=== PATIENT | male | born 2000 | race Caucasian/White ===

== ENCOUNTER 2020-08-08 21:46 | Emergency (ER) | payer BC, OTHER ==
[~2020-08-08] VITALS: Ht 177.8 cm; Wt 77.1 kg
[2020-08-08] MEDS ORDERED: LACTATED RINGERS 1,000 ML IV ONE (22:11)
[2020-08-08] MEDS ORDERED: PANTOPRAZOLE 40 MG (PROTONIX) VIAL IV ONE (22:15)
[2020-08-08 22:22] LABS: BILIRUBIN,URINE 1+ (NEGATIVE); CLARITY,URINE CLEAR; COLOR,URINE DARK YELLOW; GLUCOSE, URINE (UA) NEGATIVE (NEGATIVE); KETONES,URINE TRACE (NEGATIVE); LEUKOCYTE ESTERASE ,URINE NEGATIVE (NEGATIVE); NITRITE,URINE NEGATIVE (NEGATIVE); PROTEIN,URINE NEGATIVE (NEGATIVE)
--- NOTE | 2020-08-08 22:35 | ED GI ---
General Stated Complaint: ABD PAIN;BLOODY STOOL Source of Information: Patient History of Present Illness Date Seen by Provider: Aug 08, 2020 Time Seen by Provider: 22:03 Initial Comments PT ARRIVES VIA POV FROM HOME C/O GENERALIZED ABDOMINAL PAIN AND DIFFUSE LOWER BACK PAIN SINCE FRIDAY--BUT NOT NOW C/O NAUSEA AND VOMITING--STATES HE VOMITED 6 TIMES YESTERDAY, NO VOMITING TODAY. NO NAUSEA AT THIS TIME.NO HEMATEMESIS OR COFFEE-GROUND EMESIS C/O BLOODY DIARRHEA SINCE FRIDAY--"DARK, RED, CLEAR" STOOLS, AND STATES HE HAS HAD AT LEAST "50 STOOLS TODAY--AT LEAST EVERY 10 MINUTES" STATES HE HAD FEVER UP TO 103 ON FRIDAY, TODAY IT WAS 99.6 HAS BEEN TAKING MOTRIN 800 MG EVERY 6 HOURS FOR PAIN AND FEVER ATE DINNER FRIDAY NIGHT AT [employer]--BURGERS FROM PTO NO ONE ELSE IN HOME IS ILL STATES HE DID NOT EAT ANYTHING ON FRIDAY, HAD A COUPLE OF CRACKERS ON FRIDAY, AND FOR LUNCH TODAY HAD "TONNY" STATES HE HAS BEEN DRINKING LIQUIDS/WATER, BUT IS URINATING ONLY A SMALL AMOUNT--"JUST TRICKLES" --LAST VOID 20 MINUTES PRIOR TO ARRIVAL. STATES HE HAS HAD 5 BOTTLES OF WATER TODAY, NOTHING ELSE TO DRINK PT AND BROTHER RUN A [employer] STATES HE HAD THE SAME THING ABOUT 7 MONTHS AGO--PT STATES "FOOD POISONING" BUT NO TESTS WERE DONE, AND DID NOT SEEK CARE--SAW A NEIGHBOR WHO REPORTEDLY IS IN HEALTH CARE. WAS BETTER IN 2 DAYS PT HAS NOT BEEN ON ANTIBIOTICS X 3 MONTHS--WAS FOR A SINUS INFECTION AT THAT TIME PT DRINKS AT LEAST HALF OF FIFTH OF WHISKEY A DAY, BUT CLAIMS "NONE IN 3 WEEKS" NO MAJOR MEDICAL PROBLEMS. NO ABDOMINAL SURGERIES PCP: [facility] Allergies and Home Medications Allergies Coded Allergies: No Known Drug Allergies (Unverified , 08/08/20) Home Medications Ciprofloxacin HCl 500 Mg Tablet, 500 MG PO BID Prescribed by: MALICK CLARK on 08/09/20206 Dicyclomine HCl 20 Mg Tablet, 20 MG PO Q6H Prescribed by: MALICK CLARK on 08/09/20206 Hyoscyamine Sulfate 0.125 Mg Tab.subl, 0.25 MG SL Q4H Prescribed by: MALICK CLARK on 08/09/20206 L. Acidophilus/Pectin, Green Level 1 Each Capsule, 2 EACH PO QID Prescribed by: MALICK CLARK on 08/09/20206 Metronidazole 500 Mg Tablet, 500 MG PO QID Prescribed by: MALICK CLARK on 08/09/20206 Patient Home Medication List Home Medication List Reviewed: Yes Review of Systems Review of Systems Constitutional: see HPI, fever EENTM: No Symptoms Reported Respiratory: No Symptoms Reported Cardiovascular: No Symptoms Reported Gastrointestinal: See HPI, Abdominal Pain, Diarrhea, Nausea, Poor Appetite, Poor Fluid Intake, Rectal Bleeding, Vomiting Genitourinary: No Symptoms Reported Musculoskeletal: see HPI, back pain Skin: no symptoms reported Psychiatric/Neurological: No Symptoms Reported Endocrine: No Symptoms Reported Hematologic/Lymphatic: No Symptoms Reported Past Xslxdtw-Zgtkeo-Asmjlb Hx Past Med/Social Hx: Reviewed and Corrections made Patient Social History Alcohol Use: Regular Use (HALF OF A FIFTH OF WHISKEY / DAY) Alcohol Beverage of Choice: Whiskey Recreational Drug Use: No Smoking Status: Current Someday Smoker Type Used: Cigarettes Recent Foreign Travel: No Contact w/Someone Who Travel: No Past Medical History Surgeries: Yes Tonsillectomy Respiratory: No Cardiac: No Neurological: No Genitourinary: No Gastrointestinal: No Musculoskeletal: No Endocrine: No HEENT: No Cancer: No Psychosocial: No Integumentary: No Blood Disorders: No Physical Exam Vital Signs Vital Signs - First Documented 08/08/20 21:56 Temp 37.6 Pulse 117 Resp 20 B/P (MAP) 160/97 (118) Pulse Ox 98 Capillary Refill : Height/Weight/BMI Height: '" Weight: lbs. oz. kg; BMI Method: General Appearance: WD/WN, no apparent distress, other (WALKS UPRIGHT AND MOVES WITHOUT DIFFICULTY. DOES NOT APPEAR ILL OR TO BE IN ANY DISCOMFORT OR DISTRESS. 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, no motor/sensory deficits, alert, normal mood/affect, oriented x 3 Skin: normal color, warm/dry; No rash; tattoos/piercings (MULTIPLE TATTOOS) Focused Exam Lactate Level 08/08/20 22:30: Lactic Acid Level 0.76 Lactic Acid Level Laboratory Tests Test 08/08/20 22:30 Lactic Acid Level 0.76 MMOL/L (0.50-2.00) Progress/Results/Core Measures Results/Orders Lab Results Laboratory Tests Test 08/08/20 22:15 08/08/20 22:30 08/08/20 22:45 Range/Units Urine Color DARK YELLOW Urine Clarity CLEAR Urine pH 6.0 5-9 Urine Specific [place] >=1.030 1.016-1.022 Urine Protein NEGATIVE NEGATIVE Urine Glucose (UA) NEGATIVE NEGATIVE Urine Ketones TRACE H NEGATIVE Urine Nitrite NEGATIVE NEGATIVE Urine Bilirubin 1+ H NEGATIVE Urine Urobilinogen 0.2 < = 1.0 MG/DL Urine Leukocyte Esterase NEGATIVE NEGATIVE Urine RBC (Auto) 2+ H NEGATIVE Urine RBC 2-5 H /HPF Urine WBC 2-5 /HPF Urine Crystals PRESENT H /LPF Urine Amorphous Sediment FEW TONIE URATES H /LPF Urine Bacteria TRACE /HPF Urine Casts NONE /LPF Urine Mucus LARGE H /LPF Urine Culture Indicated NO Urine Opiates Screen NEGATIVE NEGATIVE Urine Oxycodone Screen NEGATIVE NEGATIVE Urine Methadone Screen NEGATIVE NEGATIVE Urine Propoxyphene Screen NEGATIVE NEGATIVE Urine Barbiturates Screen NEGATIVE NEGATIVE Ur Tricyclic Antidepressants Screen NEGATIVE NEGATIVE Urine Phencyclidine Screen NEGATIVE NEGATIVE Urine Amphetamines Screen NEGATIVE NEGATIVE Urine Methamphetamines Screen NEGATIVE NEGATIVE Urine Benzodiazepines Screen NEGATIVE NEGATIVE Urine Cocaine Screen NEGATIVE NEGATIVE Urine Cannabinoids Screen NEGATIVE NEGATIVE White Blood Count 7.6 4.3-11.0 10^3/uL Red Blood Count 5.10 4.30-5.52 10^6/uL Hemoglobin 15.3 13.3-17.7 g/dL Hematocrit 44 40-54 % Mean Corpuscular Volume 86 80-99 fL Mean Corpuscular Hemoglobin 30 25-34 pg Mean Corpuscular Hemoglobin Concent 35 32-36 g/dL Red Cell Distribution Width 12.7 10.0-14.5 % Platelet Count 277 130-400 10^3/uL Mean Platelet Volume 10.6 9.0-12.2 fL Immature Granulocyte % (Auto) 1 % Neutrophils (%) (Auto) 70 42-75 % Lymphocytes (%) (Auto) 19 12-44 % Monocytes (%) (Auto) 10 0-12 % Eosinophils (%) (Auto) 0 0-10 % Basophils (%) (Auto) 1 0-10 % Neutrophils # (Auto) 5.3 1.8-7.8 10^3/uL Lymphocytes # (Auto) 1.4 1.0-4.0 10^3/uL Monocytes # (Auto) 0.7 0.0-1.0 10^3/uL Eosinophils # (Auto) 0.0 0.0-0.3 10^3/uL Basophils # (Auto) 0.1 0.0-0.1 10^3/uL Immature Granulocyte # (Auto) 0.1 0.0-0.1 10^3/uL Prothrombin Time 13.9 12.2-14.7 SEC INR Comment 1.0 0.8-1.4 Activated Partial Thromboplast Time 32 24-35 SEC Sodium Level 135 135-145 MMOL/L Potassium Level 3.5 L 3.6-5.0 MMOL/L Chloride Level 98 98-107 MMOL/L Carbon Dioxide Level 22 21-32 MMOL/L Anion Gap 15 H 5-14 MMOL/L Blood Urea Nitrogen 10 7-18 MG/DL Creatinine 1.01 0.60-1.30 MG/DL Estimat Glomerular Filtration Rate > 60 BUN/Creatinine Ratio 10 Glucose Level 98 70-105 MG/DL Lactic Acid Level 0.76 0.50-2.00 MMOL/L Calcium Level 9.2 8.5-10.1 MG/DL Corrected Calcium 9.0 8.5-10.1 MG/DL Magnesium Level 1.5 L 1.6-2.4 MG/DL Total Bilirubin 0.8 0.1-1.0 MG/DL Aspartate Amino Transf (AST/SGOT) 25 5-34 U/L Alanine Aminotransferase (ALT/SGPT) 43 0-55 U/L Alkaline Phosphatase 97 40-136 U/L Total Protein 8.0 6.4-8.2 GM/DL Albumin 4.3 3.2-4.5 GM/DL Amylase Level 32 25-125 U/L Lipase 15 8-78 U/L Procalcitonin 0.14 H <0.10 NG/ML Salicylates Level < 5.0 L 5.0-20.0 MG/DL Acetaminophen Level < 10 L 10-30 UG/ML Serum Alcohol 25 H <10 MG/DL Coronavirus 2019 (ZANDRA) Negative Negative My Orders Orders - AMBERMALICK Carvajal Ed Iv/Invasive Line Start (08/08/20 22:11) Monitor-Rhythm Ecg Trace Only (08/08/20 22:11) Acetaminophen (08/08/20 22:11) Alcohol (08/08/20 22:11) Amylase (08/08/20 22:11) Cbc With Automated Diff (08/08/20 22:11) Comprehensive Metabolic Panel (08/08/20 22:11) Drug Screen Stat (Urine) (08/08/20 22:11) Lipase (08/08/20 22:11) Magnesium (08/08/20 22:11) Protime With Inr (08/08/20 22:11) Partial Thromboplastin Time (08/08/20 22:11) Salicylate (08/08/20 22:11) Ua Culture If Indicated (08/08/20 22:11) Ed Iv/Invasive Line Start (08/08/20 22:11) Lactated Ringers (Lr 1000 Ml Iv Solution (08/08/20 22:11) Pantoprazole Injection (Protonix Injecti (08/08/20 22:15) Coronavirus Sars-Cov-2 So 2018 (08/08/20 22:21) Covid 19 Inhouse Test (08/08/20 22:21) Lactic Acid Analyzer (08/08/20 22:26) Procalcitonin (Pct) (08/08/20 22:26) Blood Culture (08/08/20 22:26) Ct Abdomen/Pelvis W (08/09/20 00:29) Acute Abd Series (08/09/20 00:29) Iohexol Injection (Omnipaque 350 Mg/Ml 1 (08/09/20 01:45) Ns (Ivpb) (Sodium Chloride 0.9% Ivpb Bag (08/09/20 01:45) Ciprofloxacin Tablet (Cipro Tablet) (08/09/20 02:15) Metronidazole Tablet (Flagyl Tablet) (10/7/20 02:15) Medications Given in ED Current Medications Medications Dose Ordered Sig/Sylvia Route Start Time Stop Time Status Last Admin Dose Admin Iohexol 100 ml ONCE ONCE IV 08/09/20 01:45 08/09/20 01:46 DC 08/09/20 01:52 100 ML Lactated Ringer's 1,000 ml @ 0 mls/hr Q0M ONCE IV 08/08/20 22:11 08/08/20 22:14 DC 08/08/20 23:03 1,000 MLS/HR Pantoprazole 40 mg ONCE ONCE IV 08/08/20 22:15 08/08/20 22:16 DC 08/08/20 23:03 40 MG Sodium Chloride 80 ml ONCE ONCE IV 08/09/20 01:45 08/09/20 01:46 DC 08/09/20 01:52 80 ML Vital Signs/I&O 08/08/20 21:56 Temp 37.6 Pulse 117 Resp 20 B/P (MAP) 160/97 (118) Pulse Ox 98 Progress Progress Note : Progress Note PT PLACED IN ISOLATION ROOM. PPE WORN AT ALL TIMES COVID-19 TESTING PERFORMED PT ADVISED OF NEED FOR QUARANTINE NO PAIN ANYWHERE DURING ENTIRE ER STAY NO NAUSEA/VOMITING NO DIARRHEA VOIDED ON ARRIVAL. NO SYMPTOMS OF ANY KIND DURING ENTIRE STAY Diagnostic Imaging Comments ABDOMEN XRAYS--NO ACUTE PROCESS, PENDING RADIOLOGIST REVIEW CT ABDOMEN/PELVIS--DIFFUSE COLITIS, MILD JEJUNAL INTUSSUSCEPTION, WITHOUT EDEMA/ENTERITIS/OBSTRUCTION. FINDINGS LIKELY TRANSIENT INTUSSUSCEPTION AND ARE UNLIKELY OF CLINICAL SIGNIFICANCE. PER [facility] VIA FAX AT [id number] Reviewed: Reviewed by Me Departure Impression Primary Impression: Person under investigation for COVID-19 Additional Impression: Acute colitis Disposition: 01 HOME, SELF-CARE Condition: Improved Departure-Patient Inst. Referrals: NO,LOCAL PHYSICIAN (PCP) Primary Care Physician FALLON CHAVES DO Patient Instructions: Colitis (DC), Preventing the Spread of an Infectious Disease, Coronavirus Disease 2019 (COVID-19) Tests Add. Discharge Instructions: CLEAR LIQUIDS--WATER, BROTH, JELLO, GATORADE BRATS DIET--BANANAS, RICE, APPLESAUCE, TOAST, SALTINES NO ALCOHOL!!!!! FOLLOW UP WITH DR. CHAVES, THIS WEEK FOR FURTHER CARE RETURN TO ER IF SYMPTOMS WORSEN Scripts Hyoscyamine Sulfate (Levsin-Sl) 0.125 Mg Tab.subl 0.25 MG SL Q4H, #10 TAB Prov: MALICK CLARK DO 08/09/20 Metronidazole (Flagyl) 500 Mg Tablet 500 MG PO QID, #40 TAB Prov: MALICK CLARK DO 08/09/20 Dicyclomine HCl (Dicyclomine HCl) 20 Mg Tablet 20 MG PO Q6H for Abdominal Pain, #20 TAB Prov: MALICK CLARK DO 08/09/20 Ciprofloxacin HCl (Ciprofloxacin HCl) 500 Mg Tablet 500 MG PO BID, #20 TAB Prov: MALICK CLARK DO 08/09/20 L. Acidophilus/Pectin, Green Level (Acidophilus Capsule) 1 Each Capsule 2 EACH PO QID, #40 CAP Prov: MALICK CLARK DO 08/09/20 MALICK CLARK DO Aug 08, 2020 22:35
[2020-08-08 22:42] LABS: AMORPHOUS SEDIMENT,UR FEW AMOR URATES /LPF; BACTERIA,URINE TRACE /HPF
[2020-08-08 22:59] LABS: AMPHETAMINE SCREEN, URINE NEGATIVE (NEGATIVE); BARBITURATE SCREEN URINE NEGATIVE (NEGATIVE); BENZODIAZEPINES SCREEN URINE NEGATIVE (NEGATIVE); CANNABINOID SCREEN, URINE NEGATIVE (NEGATIVE); COCAINE SCREEN URINE NEGATIVE (NEGATIVE); METHADONE STAT NEGATIVE (NEGATIVE); METHAMPHETAMINE SCREEN URINE S NEGATIVE (NEGATIVE); OPIATE SCREEN URINE NEGATIVE (NEGATIVE); OXYCODONE STAT NEGATIVE (NEGATIVE); PROPOXYPHENE STAT NEGATIVE (NEGATIVE); TRICYCLIC ANTIDEPRESSANTS SCRE NEGATIVE (NEGATIVE)
[2020-08-08 23:10] LABS: BASOPHILS # (AUTO) 0.1 10^3/uL (0.0-0.1); BASOPHILS % (AUTO) 1 % (0-10); EOSINOPHILS % (AUTO) 0 % (0-10); HEMATOCRIT 44 % (40-54); HEMOGLOBIN 15.3 g/dL (13.3-17.7); LYMPHOCYTES # (AUTO) 1.4 10^3/uL (1.0-4.0); LYMPHOCYTES % (AUTO) 19 % (12-44); MEAN CORPUSCULAR HEMOGLOBIN 30 pg (25-34); MEAN CORPUSCULAR HGB CONC 35 g/dL (32-36); MEAN CORPUSCULAR VOLUME 86 fL (80-99); MEAN PLATELET VOLUME 10.6 fL (9.0-12.2); MONOCYTES # (AUTO) 0.7 10^3/uL (0.0-1.0); MONOCYTES % (AUTO) 10 % (0-12); NEUTROPHILS # (AUTO) 5.3 10^3/uL (1.8-7.8); NEUTROPHILS % (AUTO) 70 % (42-75); PLATELET COUNT 277 10^3/uL (130-400); WHITE BLOOD COUNT 7.6 10^3/uL (4.3-11.0)
[2020-08-08 23:24] LABS: ALBUMIN 4.3 GM/DL (3.2-4.5); CHLORIDE 98 MMOL/L (98-107); POTASSIUM 3.5 MMOL/L (3.6-5.0); PROTHROMBIN TIME PATIENT 13.9 SEC (12.2-14.7); SODIUM 135 MMOL/L (135-145)
[2020-08-08 23:26] LABS: AMYLASE 32 U/L (25-125); CALCIUM 9.2 MG/DL (8.5-10.1)
[2020-08-08 23:27] LABS: GLUCOSE 98 MG/DL (70-105)
[2020-08-08 23:28] LABS: CARBON DIOXIDE 22 MMOL/L (21-32)
[2020-08-08 23:29] LABS: BILIRUBIN,TOTAL 0.8 MG/DL (0.1-1.0)
[2020-08-08 23:30] LABS: ALKALINE PHOSPHATASE 97 U/L (40-136)
[2020-08-08 23:31] LABS: CREATININE SERUM 1.01 MG/DL (0.60-1.30); GFR ESTIMATED > 60
[2020-08-08 23:32] LABS: ACETAMINOPHEN < 10 UG/ML (10-30); BUN/CREATININE RATIO 10
[2020-08-08 23:33] LABS: MAGNESIUM 1.5 MG/DL (1.6-2.4); SALICYLATE < 5.0 MG/DL (5.0-20.0)
[2020-08-08 23:34] LABS: ALANINE AMINOTRANSFERASE 43 U/L (0-55)
[2020-08-08 23:35] LABS: LIPASE 15 U/L (8-78)
[2020-08-09] MEDS ORDERED: NS 100 ML (IVPB) BAG IV ONE (01:45)
[2020-08-09] MEDS ORDERED: IOHEXOL 350 MG/ML 100 ML (OMNIPAQUE 350) VIAL IV ONE (01:45)
[2020-08-09] MEDS ORDERED: DICY20TA10 PO (02:07)
[2020-08-09] MEDS ORDERED: HYOS0.1283 SL (02:07)
[2020-08-09] MEDS ORDERED: METR500T PO (02:07)
[2020-08-09] MEDS ORDERED: CIPR500T4 PO (02:07)
[2020-08-09] MEDS ORDERED: L. A1CAP11 PO (02:07)
[2020-08-09 02:11] VITALS: BP 136/83
--- NOTE | 2020-08-09 02:11 | NUR ---
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 DR CLARK NOTIFIED MEDS NOT GIVEN.
[2020-08-09] MEDS ORDERED: CIPROFLOXACIN 500 MG (CIPRO) TABLET PO SCH (02:15)
[2020-08-09] MEDS ORDERED: metroNIDAZOLE 500 MG (FLAGYL) TAB PO ONE (02:15)
--- NOTE | 2020-08-09 06:56 | Diagnostic Imaging Report ---
INDICATION: Abdominal pain. FINDINGS: Upright chest show the lungs to be clear. Upright supine abdomen shows no evidence of free air under the diaphragm. There are several mildly dilated loops of small bowel with air-fluid levels in the midline. There is a small amount of gas and stool noted in the colon. IMPRESSION: Mild gaseous distention of the bowel with air-fluid levels small bowel. These findings more likely are secondary to enteritis or adynamic ileus as opposed to bowel obstruction. Dictated by: Dictated on workstation # [id number]
--- NOTE | 2020-08-09 07:15 | Diagnostic Imaging Report ---
PROCEDURE: CT abdomen and pelvis with contrast. TECHNIQUE: Multiple contiguous axial images were obtained through the abdomen and pelvis after administration of intravenous contrast. Auto Exposure Controls were utilized during the CT exam to meet ALARA standards for radiation dose reduction. All CT scans use one or more of the following dose optimizing techniques: automated exposure control, MA and/or KvP adjustment based on patient size and exam type or iterative reconstruction. INDICATION: Bloody stools. FINDINGS: Lung bases are clear. There is diffuse thickening of the colonic bowel wall throughout from the cecum to the rectum. The findings do suggest intussusception in the mid jejunum though there is no evidence of significant obstruction of the small bowel. No evidence of pneumatosis of the bowel. The appendix is normal. There is no free air or free fluid. Liver appears normal. Gallbladder and bile ducts are normal. Pancreas is normal. Spleen is normal. The adrenal glands and kidneys are normal. Normal enhancement of the abdominal organs and vessels. No free air or free fluid. There are no blastic or lytic bony changes. IMPRESSION: 1. Diffuse edema of the colonic bowel wall consistent with colitis. 2. Intussusception mid jejunum causing mild obstruction without evidence of pneumatosis or significant bowel wall thickening within the small bowel at this time. These findings are concordant with the preliminary report. Dictated by: Dictated on workstation # [id number]
== END 2020-08-09 02:11 | disposition home or self-care (01) ==
LOC: ER 21:48
DX: K52.9 Noninfective gastroenteritis and colitis, unspecified (principal); F17.210 Nicotine dependence, cigarettes, uncomplicated; Z20.828 Contact with and (suspected) exposure to other viral communicable diseases
CPT/HCPCS: 74022; 74177; 80053; 80306; 81000; 82150; 83605; 83690; 83735; 84145; 85025; 85610; 85730; 87040; 93041; 99284; G0480 ×3; U0002; 36415; 80320; 80329; 87635